=== PATIENT | male | born 1945 | race Caucasian/White ===

== ENCOUNTER 2017-10-23 18:39 | Emergency (ER) | payer MEDICARE, BC ==
[2017-10-23] MEDS ORDERED: Sodium Chloride 0.9% 1,000 ML IV ONE (18:46)
--- NOTE | 2017-10-23 18:50 | EDM.PDOC ---
ED HPI GENERAL MEDICAL PROBLEM - General Stated Complaint: DIZZY/NAUSEA Time Seen by Provider: 10/23/17 18:46 Source of Information: Reports: Patient History Limitations: Reports: No Limitations - History of Present Illness INITIAL COMMENTS - FREE TEXT/NARRATIVE: HISTORY AND PHYSICAL: History of present illness: Patient is a 72-year-old male who is brought to the emergency room with complaints of dizziness. He states at approximately 4 AM this morning he was woken up from sleep with severe dizziness and mild nausea. He says since that time he has had intermittent dizziness and nausea; these symptoms are not better or worse with movement or activity. He denies any fever, chills, chest pain or shortness of breath. He denies any abdominal pain, vomiting, diarrhea or constipation. No recent falls, trauma or injury. Past medical history of type 2 diabetes and elevated cholesterol. Review of systems: As per history of present illness and below otherwise all systems reviewed and negative. Past medical history: As per history of present illness and as reviewed below otherwise noncontributory. Surgical history: As per history of present illness and as reviewed below otherwise noncontributory. Social history: No reported history of drug or alcohol abuse. Family history: As per history of present illness and as reviewed below otherwise noncontributory. Physical exam: General: Well-developed and well-nourished 72-year-old male. Alert and oriented. Nontoxic appearing and in no acute distress. HEENT: Atraumatic, normocephalic, pupils reactive, negative for conjunctival pallor or scleral icterus, mucous membranes moist, throat clear, neck supple, nontender, trachea midline. Lungs: Clear to auscultation, breath sounds equal bilaterally, chest nontender. Heart: S1S2, regular rate and rhythm Abdomen: Soft, nondistended, nontender. Negative for masses or hepatosplenomegaly. Negative for costovertebral tenderness. Pelvis: Stable nontender. Genitourinary: Deferred. Rectal: Deferred. Extremities: Atraumatic, moves all extremities per self without difficulty or deficits. Full ROM. Neurovascular unremarkable. Neuro: Awake, alert, oriented. Cranial nerves II through XII unremarkable. Cerebellum unremarkable. Motor and sensory unremarkable throughout. Exam nonfocal. Notes: GCS 15. No stroke like symptoms. Lab work is unremarkable. EKG shows a normal sinus rhythm. Chest x-ray shows no infiltrate or pneumonia. Head CT shows no acute intracranial pathology or bleeding. Does have mild chronic sinus disease. Due to the patient's previous history of dizziness I will treat with Augmentin twice a day 10 days. Patient states that he would like to be discharged to home as he has had no symptoms since arrival. I did offer him admission which he declined. We discussed signs and symptoms that would prompt him to come back to the emergency room, he is agreeable. His is at the bedside and is aware. He voices understanding of discharge instructions and denies any further questions at this time. Diagnostics: CBC, CMP, troponin, EKG, chest x-ray, head CT without contrast Therapeutics: IV fluid Impression: Dizziness Sinusitis Plan: 1. Please take the antibiotic as prescribed. Increase your fluid intake. 2. You may take [id number] meclizine as needed for dizziness. 3. Follow-up with your primary care provider in the next couple days. Return to the ED as needed and as discussed. Definitive disposition and diagnosis as appropriate pending reevaluation and review of above. Onset: Today - Related Data Allergies Allergy/AdvReac Type Severity Reaction Status Date / Time No Known Allergies Allergy Verified 01/13/15 08:54 Home Meds: Home Meds Dutasteride [Avodart] 0.5 mg PO DAILY 01/13/15 [History] Lisinopril 1 tab PO DAILY 01/13/15 [History] Omeprazole [Prilosec] 1 tab PO DAILY 01/13/15 [History] sitaGLIPtin Phos/Metformin HCl [Janumet 50-1,000 MG] 1 tab PO BID 01/13/15 [ History] Aspirin 81 mg PO DAILY 10/23/17 [History] Dapagliflozin Propanediol [Farxiga] 10 mg PO DAILY 10/23/17 [History] Past Medical History Other Gastrointestinal History: Heartburn/GERD managed by 1 pill a day unless I eat late Other Musculoskeletal History: "Aches if I overdo, some muscle aches from Statin " Other Dermatologic History: "Excision of some areas on chest, back, some frozen" - Past Surgical History Other HEENT Surgeries/Procedures: PRT eye surgery Other Male Surgeries/Procedures: Prostate Incisional biopsy Social & Family History - Tobacco Use Smoking Status *Q: Never Smoker - Alcohol Use Days Per Week of Alcohol Use: 0 - Recreational Drug Use Recreational Drug Use: No Drug Use in Last 12 Months: No ED ROS GENERAL - Review of Systems Review Of Systems: ROS reveals no pertinent complaints other than HPI. ED EXAM, GENERAL - Physical Exam Exam: See Below (See dictation) Course - Vital Signs Last Recorded V/S: Last Vital Signs Temp 97.7 F 10/23/17 18:47 Pulse 62 10/23/17 18:47 Resp 20 10/23/17 18:47 BP 128/78 10/23/17 18:47 Pulse Ox 94 L 10/23/17 19:55 Orthostatic Blood Pressure [ 108/70 Standing] Orthostatic Blood Pressure [ 107/67 Supine] - Orders/Labs/Meds Orders: Active Orders 24 hr Category Date Time Status EKG Documentation Completion [RC] STAT Care 10/23/17 18:46 Active Orthostatic Vital Signs [RC] ASDIRECTED Care 10/23/17 18:46 Active Chest 1V Frontal [CR] Stat Exams 10/23/17 18:46 Taken Head wo Cont [CT] Stat Exams 10/23/17 18:46 Taken Labs: Laboratory Tests 10/23/17 10/23/17 Range/Units 18:50 18:50 WBC 9.51 (4.0-11.0) K/uL RBC 5.45 (4.50-5.90) M/uL Hgb 17.0 (13.0-17.0) g/dL Hct 49.3 (38.0-50.0) % MCV 90.5 (80.0-98.0) fL MCH 31.2 (27.0-32.0) pg MCHC 34.5 (31.0-37.0) g/dL RDW Std Deviation 43.4 (28.0-62.0) fl RDW Coeff of Jn 13 (11.0-15.0) % Plt Count 254 (150-400) K/uL MPV 11.20 (7.40-12.00) fL Neut % (Auto) 53.0 (48.0-80.0) % Lymph % (Auto) 32.7 (16.0-40.0) % [place] % (Auto) 9.1 (0.0-15.0) % Eos % (Auto) 4.8 (0.0-7.0) % Baso % (Auto) 0.4 (0.0-1.5) % Neut # (Auto) 5.0 (1.4-5.7) K/uL Lymph # (Auto) 3.1 H (0.6-2.4) K/uL [place] # (Auto) 0.9 H (0.0-0.8) K/uL Eos # (Auto) 0.5 (0.0-0.7) K/uL Baso # (Auto) 0.0 (0.0-0.1) K/uL Nucleated RBC % 0.0 /100WBC Nucleated RBCs # 0 K/uL Sodium 137 (136-148) mmol/L Potassium 3.9 (3.5-5.1) mmol/L Chloride 103 (98-107) mmol/L Carbon Dioxide 20.7 L (21.0-32.0) mmol/L BUN 19 H (7.0-18.0) mg/dL Creatinine 1.0 (0.8-1.3) mg/dL Est Cr Clr Drug Dosing 66.92 mL/min Estimated GFR (MDRD) > 60.0 ml/min Glucose 91 (74-106) mg/dL Calcium 8.8 (8.5-10.1) mg/dL Total Bilirubin 1.3 H (0.2-1.0) mg/dL AST 22 (15-37) IU/L ALT 24 (14-63) IU/L Alkaline Phosphatase 44 L (46-116) U/L Troponin I < 0.050 (0.000-0.056) ng/mL Total Protein 7.1 (6.4-8.2) g/dL Albumin 3.7 (3.4-5.0) g/dL Globulin 3.4 (2.0-3.5) g/dL Albumin/Globulin Ratio 1.1 L (1.3-2.8) Meds: Medications Discontinued Medications Generic Name Dose Route Start Last Admin Trade Name Freq PRN Reason Stop Dose Admin Sodium Chloride 1,000 mls @ 999 mls/hr 10/23/17 18:46 10/23/17 19:16 Normal Saline IV 10/23/17 19:46 999 mls/hr STAT ONE Administration Departure - Departure Time of Disposition: 20:29 Disposition: Home, Self-Care 01 Clinical Impression: Dizziness Sinusitis Qualifiers: Sinusitis location: maxillary Chronicity: chronic Qualified Code(s): J32.0 - Chronic maxillary sinusitis - Discharge Information Instructions: Sinusitis, Adult, [id number], Dizziness, [id number] Additional Instructions: The following information is given to patients seen in the emergency department who are being discharged to home. This information is to outline your options for follow-up care. We provide all patients seen in our emergency department with a follow-up referral. The need for follow-up, as well as the timing and circumstances, are variable depending upon the specifics of your emergency department visit. If you don't have a primary care physician on staff, we will provide you with a referral. We always advise you to contact your personal physician following an emergency department visit to inform them of the circumstance of the visit and for follow-up with them and/or the need for any referrals to a consulting specialist. The emergency department will also refer you to a specialist when appropriate. This referral assures that you have the opportunity for follow-up care with a specialist. All of these measure are taken in an effort to provide you with optimal care, which includes your follow-up. Under all circumstances we always encourage you to contact your private physician who remains a resource for coordinating your care. When calling for follow-up care, please make the office aware that this follow-up is from your recent emergency room visit. If for any reason you are refused follow-up, please contact the [facility] at and asked to speak to the emergency department charge nurse. [facility] [address] [place] [id number] 1. Please take the antibiotic as prescribed. Increase your fluid intake. 2. You may take [id number] meclizine as needed for dizziness. 3. Follow-up with your primary care provider in the next couple days. Return to the ED as needed and as discussed. - My Orders Last 24 Hours: My Active Orders 10/23/17 18:46 EKG Documentation Completion [RC] STAT Orthostatic Vital Signs [RC] ASDIRECTED Chest 1V Frontal [CR] Stat Head wo Cont [CT] Stat - Assessment/Plan Last 24 Hours: My Active Orders 10/23/17 18:46 EKG Documentation Completion [RC] STAT Orthostatic Vital Signs [RC] ASDIRECTED Chest 1V Frontal [CR] Stat Head wo Cont [CT] Stat
[2017-10-23 19:32] LABS: CHLORIDE,CL 103 mmol/L (98-107); SODIUM,NA 137 mmol/L (136-148)
[2017-10-23 20:58] VITALS: BP 115/70
--- NOTE | 2017-10-24 12:34 | CT ---
EXAM DATE: 10/23/17 PATIENT'S AGE: 72 Patient: KEILA WAYNE Facility: [place], [place] Site . Site : 1945 Study: CT Head wo cont [id number]/22/2018 7:33:55 PM Ordering Physician: Doctor Kang Final Report: HISTORY: Dizziness started at 0400 hours. TECHNIQUE: The head was scanned in the axial plane at 3 mm intervals without IV contrast. Reconstructed bone windows were obtained as well as sagittal and coronal reconstructions. FINDINGS: There is mild mucosal thickening seen within the maxillary sinus. Mild amount of mucosal thickening seen within the ethmoid air cells. Trace mucosal thickening in the right frontal sinus. The sphenoid sinus and mastoid air cells are well aerated. The calvarium is intact. Calcifications in the left vertebral artery and the carotid siphons. The ventricles and sulci generous in size. No intra-axial mass, edema or midline shift is identified. No extra-axial fluid collections are seen. Devi-white differentiation is preserved. IMPRESSION: 1. Mild chronic sinus disease. 2. Mild atrophy. 3. No acute intracranial pathology or bleed. Dictated by Lupe Morales MD @ 10/23/2017 7:51:51 PM Dictated by: Lupe Morales MD @ 10/23/2017 19:51:59 (Electronic Signature) Report Signed by Proxy. [facility]
--- NOTE | 2017-10-24 12:35 | CR ---
EXAM DATE: 10/23/17 PATIENT'S AGE: 72 Patient: KEILA WAYNE Facility: [place], [place] Site . Site : 1945 Study: XRay Chest [id number]/22/2018 7:38:50 PM Ordering Physician: Doctor Kang Final Report: HISTORY: Dizziness. FINDINGS: AP portable chest radiograph is compared with 27 Dec 2014. EKG leads overlie the thorax. The cardiac silhouette is normal size. Pulmonary vasculature is free of cephalization. There is calcification in the aortic knob. Superior mediastinum is slender. No consolidation or pleural effusion is seen. IMPRESSION: No acute cardiopulmonary disease. Dictated by Lupe Morales MD @ 10/23/2017 7:54:56 PM Dictated by: Lupe Morales MD @ 10/23/2017 19:56:19 (Electronic Signature) Report Signed by Proxy. [email or web address]
== END 2017-10-23 20:56 | disposition home or self-care (01) ==
LOC: MW.ED 18:39
DX: R42 Dizziness and giddiness (principal); J32.0 Chronic maxillary sinusitis; E11.9 Type 2 diabetes mellitus without complications; Z79.899 Other long term (current) drug therapy; Z79.82 Long term (current) use of aspirin
CPT/HCPCS: 36415; 70450; 71045; 80053; 84484; 85025; 96360; 99285; J7040; 99283

== ENCOUNTER 2024-10-10 12:20 | Emergency (ER) | payer BC, MEDICARE ==
[2024-10-10 13:40] VITALS: BP 122/68; PULSE 68
== END 2024-10-10 13:39 | disposition home or self-care (01) ==
LOC: MW.ED 12:20
DX: S00.03XA Contusion of scalp, initial encounter (principal); K21.9 Gastro-esophageal reflux disease without esophagitis; E11.9 Type 2 diabetes mellitus without complications; Z79.899 Other long term (current) drug therapy; Z79.82 Long term (current) use of aspirin; Z79.84 Long term (current) use of oral hypoglycemic drugs; W10.9XXA Fall (on) (from) unspecified stairs and steps, initial encounter
CPT/HCPCS: 70450; 70450-26; 99283

== ENCOUNTER 2025-05-25 12:12 | Emergency (ER) | payer MEDICARE ==
[2025-05-25 12:21] LABS: BASOPHILS ABSOLUTE AUTO 0.08 K/uL (0.00-0.20); BASOPHILS PERCENT AUTO 1.0 % (0.0-1.0); EOSINOPHILS ABSOLUTE AUTO 0.40 K/uL (0.00-0.45); EOSINOPHILS PERCENT AUTO 4.8 % (0.0-6.0); IMMATURE GRAN ABSOLUTE AUTO 0.02 K/uL (0.00-0.05); IMMATURE GRAN PERCENT AUTO 0.2 % (0.0-0.4); LYMPHOCYTES ABSOLUTE AUTO 2.91 K/uL (1.00-4.80); LYMPHOCYTES PERCENT AUTO 35.2 % (24.0-44.0); MEAN PLATELET VOLUME 11.0 fL (9.4-12.4); MONOCYTES ABSOLUTE AUTO 0.89 K/uL (0.00-0.80); MONOCYTES PERCENT AUTO 10.8 % (0.0-8.0); NEUTROPHILS ABSOLUTE AUTO 3.96 K/uL (1.80-7.70); NEUTROPHILS PERCENT AUTO 48.0 % (41.0-71.0); NRBC ABSOLUTE 0.00 K/uL (0.00-0.02); NRBC PERCENT 0.0 /100WBC (0.0-0.2); PLATELET COUNT,PLT 262 K/uL (150-400); RED BLOOD CELL COUNT 5.11 M/uL (4.52-5.90); WHITE BLOOD CELL COUNT,WBC 8.26 K/uL (3.9-11.3)
[2025-05-25] MEDS: Iopamidol 755 MG/ML 500 ML Multipack Bottle IVPUSH STA (12:29)
[2025-05-25 12:37] LABS: INR 1.03 (0.86-1.11); PTT,PARTIAL THROMBOPLSTIN TIME 23.7 SEC (23.9-30.7)
[2025-05-25 12:49] LABS: A/G RATIO 1.0 (0.9-1.6); ALANINE AMINOTRANSFERASE,ALT 16 IU/L (14-63); ASPARTATE AMNIOTRANSFERASE,AST 20 IU/L (15-37); BILIRUBIN TOTAL 1.1 mg/dL (0.2-1.0); BLOOD UREA NITROGEN,BUN 16 mg/dL (7.0-18.0); CARBON DIOXIDE,CO2 25.3 mmol/L (21.0-32.0); CHLORIDE,CL 103 mmol/L (98-107); CREATININE 1.0 mg/dL (0.8-1.3); GLUCOSE RANDOM 244 mg/dL (74-106); POTASSIUM,K 4.8 mmol/L (3.5-5.1); PROTEIN TOTAL,TP 7.1 g/dL (6.4-8.2); SODIUM,NA 138 mmol/L (136-148)
[2025-05-25 12:52] LABS: ESTIMATED GFR 75 mL/min (>60)
[2025-05-25 13:15] LABS: APPEARANCE,URINE CLEAR; GLUCOSE,URINE >=1000 mg/dL (NEGATIVE); OCCULT BLOOD,URINE NEGATIVE (NEGATIVE)
[2025-05-25] MEDS: Tenecteplase 25 MG KIT IVPUSH ONE (13:44)
[2025-05-25 14:48] VITALS: BP 163/72; PULSE 54
== END 2025-05-25 14:54 ==
LOC: MW.ED 12:12
DX: I63.9 Cerebral infarction, unspecified (principal); E78.00 Pure hypercholesterolemia, unspecified; K21.9 Gastro-esophageal reflux disease without esophagitis; E11.9 Type 2 diabetes mellitus without complications; Z79.899 Other long term (current) drug therapy; Z79.84 Long term (current) use of oral hypoglycemic drugs
CPT/HCPCS: 36415; 37195; 70450; 70496; 70498; 71045; 80053; 81003; 84484; 85025; 85610; 85730; 93005; 99285; Q9967; 93010; J3101